=== PATIENT | male | born 2000 | race Caucasian/White ===

== ENCOUNTER 2021-04-06 17:12 | Emergency (ER) | payer OTHER ==
[~2021-04-06] VITALS: Ht 195.6 cm; Wt 136.1 kg
[2021-04-06] MEDS ORDERED: MIRTAZAPINE15 M2 PO (17:43)
[2021-04-06 18:18] VITALS: BP 130/62
== END 2021-04-06 18:18 | disposition home or self-care (01) ==
LOC: ER 17:12
DX: S06.0X9A Concussion with loss of consciousness of unspecified duration, initial encounter (principal); H93.11 Tinnitus, right ear; G43.909 Migraine, unspecified, not intractable, without status migrainosus; F41.9 Anxiety disorder, unspecified; F32.9 Major depressive disorder, single episode, unspecified; Z79.899 Other long term (current) drug therapy; Z72.89 Other problems related to lifestyle; X08.8XXA Exposure to other specified smoke, fire and flames, initial encounter; Y93.89 Activity, other specified; Y92.89 Other specified places as the place of occurrence of the external cause; Y99.8 Other external cause status